=== PATIENT | female | born 1990 | race Caucasian/White ===

== ENCOUNTER 2018-10-12 06:22 | Emergency (ER) | payer MEDICAID ==
[~2018-10-12] VITALS: Ht 157.5 cm; Wt 91.0 kg
[2018-10-12 08:10] VITALS: BP 143/84
== END 2018-10-12 09:06 | disposition home or self-care (01) ==
LOC: ED 07:21
DX: M54.6 Pain in thoracic spine (principal)
CPT/HCPCS: 36415; 71046; 71275; 80048; 81003; 82040; 85025; 85379; 93005; 96372; 96374; 99284; J1885; J2270; Q9967